=== PATIENT | male | born 1945 | race Caucasian/White ===

== ENCOUNTER 2017-11-25 19:30 | Emergency (ER) | payer MEDICARE ==
[~2017-11-25] VITALS: Ht 182.9 cm; Wt 83.2 kg
[~2017-11-25 19:30] MED LIST: BACT800T5 PO; METO50TA11 PO; NORV5TAB PO
[2017-11-25 19:41] VITALS: BP 147/91; PULSE 102; RESP 20; TEMP 98.4; O2SAT 97
[2017-11-25] MEDS ORDERED: SODIUM CHLOR 0.9% 1000 ML INJ 1,000 ML IV SCH (20:34)
[2017-11-25] MEDS ORDERED: ONDANSETRON HCL 4 MG/2 ML VIAL IVP ONE (20:45)
[2017-11-25] MEDS ORDERED: SODIUM CHLORIDE 0.9% FLUSH 10 ML FLUSH IV FLUSH PRN (20:45)
[2017-11-25] MEDS ORDERED: MORPHINE SULFATE 2 MG/ML INJ IV PUSH ONE (20:45)
--- NOTE | 2017-11-25 20:48 | PD ---
HPI Chief Complaint: Abdominal Pain Time Seen by Provider: 20:26 Travel History International Travel<30 days: No Contact w/Intl Traveler<30days: No Traveled to known affect area: No History of Present Illness HPI 72-year-old male with history of diverticulitis, here for evaluation of left lower quadrant abdominal pain. Pain started last night, has been constant, sharp, currently 6 out of 10, worse with eating and with movements. States that he had similar pain with his last diverticulitis flaring 2011. He is felt nauseous but has not vomited. He has not had any fevers. History of bilateral inguinal hernia repairs by Dr. Gao. No other abdominal surgeries. He denies urinary symptoms. No melena or hematochezia. PFSH Past Medical History Arthritis: Yes (BURSITIS LEFT SHOULDER) Anxiety: Yes Heart Rhythm Problems: Yes (HEART MURMUR) Cancer: No Cardiovascular Problems: Yes High Cholesterol: Yes Chest Pain: No Congestive Heart Failure: No Diabetes: No Diminished Hearing: No Diverticulitis: Yes (SEVERE) Endocrine: No Genitourinary: No Hiatal Hernia: Yes (SURGERY 09/2010) Hypertension: Yes Immune Disorder: No Inguinal Hernia: Yes (2009, 2013) Implanted Vascular Access Dvce: No Musculoskeletal: No Neurologic: No Psychiatric: No Reproductive: No Respiratory: No Immunizations Current: No (NO FLU SHOT THIS YEAR YET) Ulcer: No ?: Not Past Surgical History Abdominal Surgery: Yes (HERNIA OPERATION 2009, INDIRECT/DIRECT ON RIGHT, DIRECT ON LEFT HERNIA) Tonsillectomy: Yes Other Surgery: Yes Social History Alcohol Use: No Tobacco Use: No Substance Use: No Allergies-Medications (Allergen,Severity, Reaction): Coded Allergies: No Known Allergies (Verified Adverse Reaction, Unknown, 11/25/17) Reported Meds & Prescriptions Reported Meds & Active Scripts Active Review of Systems Except as stated in HPI: all other systems reviewed are Neg Physical Exam Narrative GENERAL: Pleasant, well-developed, well-nourished, comfortable, no apparent distress. SKIN: Focused skin assessment warm/dry. No rash. HEAD: Atraumatic. Normocephalic. EYES: Pupils equal and round. No scleral icterus. No injection or drainage. ENT: Mucous membranes pink and moist. NECK: Trachea midline. No JVD. CARDIOVASCULAR: Regular rate and rhythm. No murmur appreciated. RESPIRATORY: No accessory muscle use. Clear to auscultation. Breath sounds equal bilaterally. GASTROINTESTINAL: Abdomen soft, nondistended. Moderate left lower quadrant tenderness without peritoneal signs. Normal bowel sounds. Small umbilical hernia that is easily reducible. No other hernias. MUSCULOSKELETAL: No obvious deformities. No clubbing. No cyanosis. No edema. No CVA tenderness. NEUROLOGICAL: Awake and alert. No obvious cranial nerve deficits. Motor grossly within normal limits. Normal speech. PSYCHIATRIC: Appropriate mood and affect; insight and judgment normal. Data Data Last Documented VS Vital Signs Date Time Temp Pulse Resp B/P (MAP) Pulse Ox O2 Delivery O2 Flow Rate FiO2 11/25/17 21:26 70 16 116/74 (88) 97 Room Air 11/25/17 19:41 98.4 Orders Orders Complete Blood Count With Diff (11/25/17 20:34) Comprehensive Metabolic Panel (11/25/17 20:34) Lipase (11/25/17 20:34) Lactic Acid (11/25/17 20:34) Prothrombin Time / Inr (Pt) (11/25/17 20:34) Act Partial Throm Time (Ptt) (11/25/17 20:34) Urinalysis - C+S If Indicated (11/25/17 20:34) Ct Abd/Pel W Iv Contrast(Rout) (11/25/17 20:34) Iv Access Insert/Monitor (11/25/17 20:34) Ecg Monitoring (11/25/17 20:34) Oximetry (11/25/17 20:34) Ondansetron Inj (Zofran Inj) (11/25/17 20:45) Sodium Chlor 0.9% 1000 Ml Inj (Ns 1000 M (11/25/17 20:34) Sodium Chloride 0.9% Flush (Ns Flush) (11/25/17 20:45) Morphine Inj (Morphine Inj) (11/25/17 20:45) Iohexol 350 Inj (Omnipaque 350 Inj) (11/25/17 21:50) Ciprofloxacin (Cipro) (11/25/17 22:30) Labs Laboratory Tests Test 11/25/17 20:40 White Blood Count 11.5 TH/MM3 Red Blood Count 5.05 MIL/MM3 Hemoglobin 14.7 GM/DL Hematocrit 44.7 % Mean Corpuscular Volume 88.6 FL Mean Corpuscular Hemoglobin 29.0 PG Mean Corpuscular Hemoglobin Concent 32.8 % Red Cell Distribution Width 12.6 % Platelet Count 214 TH/MM3 Mean Platelet Volume 7.4 FL Neutrophils (%) (Auto) 74.7 % Lymphocytes (%) (Auto) 12.2 % Monocytes (%) (Auto) 10.7 % Eosinophils (%) (Auto) 1.3 % Basophils (%) (Auto) 1.1 % Neutrophils # (Auto) 8.7 TH/MM3 Lymphocytes # (Auto) 1.4 TH/MM3 Monocytes # (Auto) 1.2 TH/MM3 Eosinophils # (Auto) 0.1 TH/MM3 Basophils # (Auto) 0.1 TH/MM3 CBC Comment DIFF FINAL Differential Comment Prothrombin Time 10.7 SEC Prothromb Time International Ratio 1.1 RATIO Activated Partial Thromboplast Time 27.2 SEC Blood Urea Nitrogen 9 MG/DL Creatinine 0.91 MG/DL Random Glucose 96 MG/DL Total Protein 7.5 GM/DL Albumin 3.8 GM/DL Calcium Level 9.2 MG/DL Alkaline Phosphatase 52 U/L Aspartate Amino Transf (AST/SGOT) 15 U/L Alanine Aminotransferase (ALT/SGPT) 21 U/L Total Bilirubin 0.5 MG/DL Sodium Level 137 MEQ/L Potassium Level 3.7 MEQ/L Chloride Level 102 MEQ/L Carbon Dioxide Level 28.1 MEQ/L Anion Gap 7 MEQ/L Estimat Glomerular Filtration Rate 81 ML/MIN Lactic Acid Level 1.0 mmol/L Lipase 154 U/L MDM Medical Decision Making Medical Screen Exam Complete: Yes Emergency Medical Condition: Yes Differential Diagnosis Diverticulitis, colitis, appendicitis, UTI, cystitis, nephrolithiasis Narrative Course Vital signs reviewed and are within normal limits. CBC: WBC 11.5, hemoglobin 14.7, hematocrit 44.7, platelets 214, neutrophils 75%. CMP is unremarkable. Lipase is 154. Lactic acid is 1. CT abdomen pelvis: CONCLUSION: Numerous colonic diverticula. Acute diverticulitis of the distal descending colon in the left lower quadrant. No evidence of drainable abscess or free air. The patient has a standing order by his primary care physician for Flagyl 250 mg 3 times a day which he filled today and took a total of 3 doses today. He has been seen by colorectal surgeon Dr. Rodriguez in the past regarding his diverticulitis. He was given a dose of morphine in the emergency department and reports feeling significantly improved. At this point I believe he can be treated as an outpatient with Cipro and Flagyl and follow up with his primary care physician or colorectal surgeon this week. He was provided a copy of his CT abdomen pelvis report was made aware of all laboratory findings. Patient is amenable to this plan. Diagnosis Primary Impression: Acute diverticulitis Referrals: Ananth Rodriguez MD 3 days Primary Care Physician 3 days Additional Instructions: Follow-up with your primary care physician this week. Follow-up with your colorectal surgeon Dr. Rodriguez this week. Take antibiotics as prescribed. Return to the emergency department for worsening symptoms or any other concerns. Scripts Hydrocodone-Acetaminophen (Hydrocodone-Acetaminophen) 5-325 mg Tab 1 TAB PO Q6H Y for PAIN, #15 TAB 0 Refills Prov: Garrett Varela MD 11/25/17 Metronidazole (Flagyl) 500 Mg Tab 500 MG PO BID for Infection for 10 Days, #20 TAB 0 Refills Prov: Garrett Varela MD 11/25/17 Ciprofloxacin (Cipro) 500 Mg Tab 500 MG PO BID for Infection for 10 Days, #20 TAB 0 Refills Prov: Garrett Varela MD 11/25/17 Disposition: 01 DISCHARGE HOME Condition: Stable Garrett Varela MD Nov 25, 2017 20:48
[2017-11-25 20:52] LABS: AUTOMATED NEUTROPHIL # 8.7 TH/MM3 (1.8-7.7); BASOPHIL # 0.1 TH/MM3 (0-0.2); BASOPHIL % 1.1 % (0.0-2.0); EOSINOPHIL # 0.1 TH/MM3 (0-0.4); EOSINOPHIL % 1.3 % (0.0-4.0); HEMATOCRIT 44.7 % (39.0-51.0); HEMOGLOBIN 14.7 GM/DL (13.0-17.0); LYMPH % 12.2 % (9.0-44.0); LYMPHOCYTE # 1.4 TH/MM3 (1.0-4.8); MEAN CELL VOLUME 88.6 FL (80.0-100.0); MEAN CORPUSCULAR HGB CONC 32.8 % (32.0-36.0); MEAN PLATELET VOLUME 7.4 FL (7.0-11.0); MONO % 10.7 % (0.0-8.0); MONOCYTE # 1.2 TH/MM3 (0-0.9); NEUT % 74.7 % (16.0-70.0); PLATELET COUNT 214 TH/MM3 (150-450); RED BLOOD COUNT 5.05 MIL/MM3 (4.50-5.90); RED CELL DISTRIBUTION WIDTH 12.6 % (11.6-17.2); WHITE BLOOD COUNT 11.5 TH/MM3 (4.0-11.0)
[2017-11-25 20:56] VITALS: BP 124/75; PULSE 70; RESP 16; O2SAT 95
[2017-11-25 20:59] LABS: CHLORIDE 102 MEQ/L (98-107); SODIUM (NA) 137 MEQ/L (136-145)
[2017-11-25 21:02] LABS: CALCIUM 9.2 MG/DL (8.5-10.1)
[2017-11-25 21:03] LABS: ALBUMIN 3.8 GM/DL (3.4-5.0); BICARBONATE 28.1 MEQ/L (21.0-32.0); BLOOD UREA NITROGEN 9 MG/DL (7-18); GLUCOSE,RANDOM 96 MG/DL (74-106); LIPASE 154 U/L (73-393)
[2017-11-25 21:06] LABS: ALT (GPT) 21 U/L (12-78); AST (GOT) 15 U/L (15-37); CREATININE 0.91 MG/DL (0.60-1.30); GLOMERULAR FILTRATION RATE 81 ML/MIN (>89); INTERNATIONAL NORMALIZED RATIO 1.1 RATIO; PROTHROMBIN TIME - PATIENT 10.7 SEC (9.8-11.6)
[2017-11-25 21:07] LABS: TOTAL BILIRUBIN ADULT 0.5 MG/DL (0.2-1.0); TOTAL PROTEIN 7.5 GM/DL (6.4-8.2)
[2017-11-25 21:09] LABS: ALKALINE PHOSPHATASE 52 U/L (45-117)
[2017-11-25 21:26] VITALS: BP 116/74; PULSE 70; RESP 16; O2SAT 97
[2017-11-25] MEDS ORDERED: IOHEXOL 350 MG/ML 10 ML VIAL (for RAD DIAG) IVCONTRAST ONE (21:50)
--- NOTE | 2017-11-25 22:07 | RADRPT ---
EXAM DATE/TIME: 11/25/2017 21:44 [facility] COMPARISON: No previous studies available for comparison. INDICATIONS : Left lower quad pain for 24 hours. IV CONTRAST: 96 cc Omnipaque 350 (iohexol) IV ORAL CONTRAST: No oral contrast ingested. RADIATION DOSE: 10.11 CTDIvol (mGy) MEDICAL HISTORY : Diverticulitis. Hypertension. SURGICAL HISTORY : Inguinal hernia repair. ENCOUNTER: Initial ACUITY: 1 day PAIN SCALE: 7/10 LOCATION: Left lower quadrant TECHNIQUE: Volumetric scanning of the abdomen and pelvis was performed. Using automated exposure control and ad justment of the mA and/or kV according to patient size, radiation dose was kept as low as reasonably achievable to obtain optimal diagnostic quality images. DICOM format image data is available electro nically for review and comparison. FINDINGS: LOWER LUNGS: Atelectasis at lung bases. LIVER: Homogeneous density without lesion. There is no dilation of the biliary tree. No calcified gallston es. SPLEEN: Normal size without lesion. PANCREAS: Within normal limits. KIDNEYS: 5 cm lower pole right renal cyst. Kidneys otherwise unremarkable. ADRENAL GLANDS: Within normal limits. VASCULAR: Mild aneurysmal dilatation of the distal abdominal aorta just above the bifurcation measuring 3.1 cm in AP dimension. Diffuse atherosclerotic disease of the aorta. BOWEL/MESENTERY: Numerous colonic diverticula. Opacity and hazy opacity in the fat adjacent to the distal descending c olon with adjacent wall thickening 3 findings indicate acute diverticulitis. No evidence of drainable abscess or free air. No bowel dilatation. Appendix within normal limits. No free fluid. ABDOMINAL WALL: Fat-containing periumbilical hernia measuring 2.7 cm. RETROPERITONEUM: There is no lymphadenopathy. BLADDER: Distended urinary bladder. REPRODUCTIVE: Within normal limits. INGUINAL: There is no lymphadenopathy or hernia. MUSCULOSKELETAL: Within normal limits for patient age. CONCLUSION: Numerous colonic diverticula. Acute diverticulitis of the distal descending colon in the left lower q uadrant. No evidence of drainable abscess or free air. Phi Krueger MD on November 25, 2017 at 22:01 Board Certified Radiologist. This report was verified electronically.
[2017-11-25] MEDS ORDERED: CIPROFLOXACIN 500 MG TAB PO ONE (22:30)
[2017-11-25] MEDS ORDERED: CIPR-9 PO (22:34)
[2017-11-25] MEDS ORDERED: HYDR-3516 PO (22:34)
[2017-11-25] MEDS ORDERED: METR-1 PO (22:34)
[2017-11-25 23:01] VITALS: BP 127/73
== END 2017-11-25 23:03 | disposition home or self-care (01) ==
LOC: PHED 19:30
DX: K57.32 Diverticulitis of large intestine without perforation or abscess without bleeding (principal); R11.0 Nausea; I10 Essential (primary) hypertension; E78.00 Pure hypercholesterolemia, unspecified; Z87.39 Personal history of other diseases of the musculoskeletal system and connective tissue; Z86.59 Personal history of other mental and behavioral disorders; Z86.79 Personal history of other diseases of the circulatory system
CPT/HCPCS: 74177; 80053; 83605; 83690; 85025; 85610; 85730; 96361; 96374; 96375; 99285; J2270; J2405; J7030; Q9967